=== PATIENT | female | born 1945 | race African-American/Black ===

== ENCOUNTER 2022-05-03 09:58 | Observation (INO) | payer BC, OTHER ==
[2022-05-03 10:13] VITALS: BMI 37.0
[2022-05-03] MEDS ORDERED: SODIUM CHLORIDE 0.9% 500 ML INFUS.BAG IV ONE (10:51)
[2022-05-03 11:24] LABS: BASO % 1.1 % (0-2.0); EOS % 2.2 % (0-4.5); HEMATOCRIT 40.5 % (32.4-45.2); HEMOGLOBIN 13.2 GM/dL (10.7-15.3); LYMPH % 38.8 % (8-40); MCH 28.5 pg (25.7-33.7); MCHC 32.7 g/dl (32.0-36.0); MEAN CELL VOLUME 87.2 fl (80-96); MEAN PLT VOLUME 8.2 fl (7.5-11.1); MONO % 6.8 % (3.8-10.2); NEUT % 51.1 % (42.8-82.8); PLATELET COUNT 301 10^3/uL (134-434); RBC 4.65 M/mm3 (3.60-5.2); RDW 13.4 % (11.6-15.6); WHITE BLOOD COUNT 5.9 K/mm3 (4.0-10.0)
[2022-05-03 11:55] LABS: ALBUMIN 3.2 g/dl (3.4-5.0); BLOOD UREA NITROGEN 20.1 mg/dL (7-18); CALCIUM 9.3 mg/dL (8.5-10.1)
[2022-05-03 11:58] LABS: CREATININE 1.2 mg/dL (0.55-1.3)
[2022-05-03 12:00] LABS: BILIRUBIN,TOTAL 0.3 mg/dL (0.2-1); TOT PROT 6.8 g/dl (6.4-8.2)
[2022-05-03] MEDS ORDERED: ACETAMINOPHEN 325 MG TABLET (FP) PO ONE (13:23)
[2022-05-03] MEDS ORDERED: ACETAMINOPHEN 325 MG TABLET (FP) ONE (13:24)
[2022-05-03] MEDS ORDERED: LIDOCAINE 5% TOPICAL PATCH TP ONE (17:43)
[2022-05-03] MEDS ORDERED: LIDOCAINE 5% TOPICAL PATCH ONE (17:47)
[2022-05-03 18:01] LABS: URINE APPEARANCE CLEAR; URINE BILIRUBIN NEGATIVE (NEGATIVE); URINE COLOR YELLOW; URINE GLUCOSE (UA) NEGATIVE (NEGATIVE); URINE KETONE NEGATIVE (NEGATIVE); URINE LEUK ESTERASE NEGATIVE (NEGATIVE); URINE NITRITE NEGATIVE (NEGATIVE); URINE PROTEIN NEGATIVE (NEGATIVE); URINE UROBILINOGEN 0.2 mg/dL (0.2-1.0)
[2022-05-03] MEDS ORDERED: ACETAMINOPHEN 1000 MG/100 ML BAG IVPB ONE (21:18)
[2022-05-03] MEDS ORDERED: ACETAMINOPHEN INJECTION 100 ML IVPB ONE (21:20)
[2022-05-04] MEDS ORDERED: ACETAMINOPHEN 325 MG TABLET (FP) PO PRN (02:37)
[2022-05-04] MEDS ORDERED: ACETAMINOPHEN 325 MG TABLET (FP) ONE (03:42)
[2022-05-04] MEDS ORDERED: LIDOCAINE PATCH REMOVAL MC SCH (06:00)
[2022-05-04 06:38] VITALS: TEMP 98
[2022-05-04 06:42] LABS: BASO % 0.9 % (0-2.0); EOS % 1.9 % (0-4.5); HEMATOCRIT 40.8 % (32.4-45.2); HEMOGLOBIN 13.2 GM/dL (10.7-15.3); LYMPH % 42.5 % (8-40); MCH 28.5 pg (25.7-33.7); MCHC 32.3 g/dl (32.0-36.0); MEAN CELL VOLUME 88.1 fl (80-96); MEAN PLT VOLUME 8.4 fl (7.5-11.1); MONO % 6.5 % (3.8-10.2); NEUT % 48.2 % (42.8-82.8); PLATELET COUNT 240 10^3/uL (134-434); RBC 4.63 M/mm3 (3.60-5.2); RDW 13.1 % (11.6-15.6); WHITE BLOOD COUNT 6.7 K/mm3 (4.0-10.0)
[2022-05-04 06:50] LABS: CALCIUM 9.1 mg/dL (8.5-10.1)
[2022-05-04 06:51] LABS: ALBUMIN 3.2 g/dl (3.4-5.0); BLOOD UREA NITROGEN 20.8 mg/dL (7-18); MAGNESIUM 2.2 mg/dL (1.8-2.4)
[2022-05-04 06:54] LABS: CHOLESTEROL 315 mg/dL (50-200); CREATININE 1.1 mg/dL (0.55-1.3); PHOSPHOROUS 3.6 mg/dL (2.5-4.9); TRIGLYCERIDES 102 mg/dL (0-150)
[2022-05-04 06:55] LABS: LDL CHOLESTEROL (ONLY SJRH) 227 mg/dL (5-100)
[2022-05-04 06:56] LABS: BILIRUBIN,TOTAL 0.4 mg/dL (0.2-1); TOT PROT 6.8 g/dl (6.4-8.2)
[2022-05-04 06:57] LABS: HDL CHOLESTEROL 60 mg/dL (40-60)
[2022-05-04] MEDS ORDERED: METOPROLOL TARTRATE 25 MG TABLET (FP) ONE (08:38)
[2022-05-04] MEDS ORDERED: METOPROLOL TARTRATE 25 MG TABLET (FP) PO SCH (10:00)
[2022-05-04] MEDS ORDERED: ENOXAPARIN NA (PORCINE) 40 MG/0.4 ML DISP.SYRIN SQ SCH (10:00)
[2022-05-04] MEDS ORDERED: ENOXAPARIN NA (PORCINE) 40 MG/0.4 ML DISP.SYRIN SQ ONE (11:03)
[2022-05-04] MEDS ORDERED: ATORVASTATIN CA 20 MG TABLET (FP) ONE (12:56)
[2022-05-04] MEDS ORDERED: ATORVASTATIN CA 20 MG TABLET (FP) PO SCH (13:00)
[2022-05-04 16:05] VITALS: BP 154/99; PULSE 80; RESP 16
[2022-05-04] MEDS ORDERED: HYDROCHLOROTHIAZIDE 25 MG TABLET (FP) PO SCH (22:00)
== END 2022-05-04 16:02 | disposition home or self-care (01) ==
LOC: JER 09:58 → JERBED 11:54
PROVIDERS: ADMIT Hospitalist; ATTEND Internal Medicine
PROC: 3E033NZ Introduction of Analgesics, Hypnotics, Sedatives into Peripheral Vein, Percutaneous Approach (ICD-10-PCS; principal; 2022-05-03)
PROC: 3E023GC Introduction of Other Therapeutic Substance into Muscle, Percutaneous Approach (ICD-10-PCS; 2022-05-03)
PROC: 3E0337Z Introduction of Electrolytic and Water Balance Substance into Peripheral Vein, Percutaneous Approach (ICD-10-PCS; 2022-05-03)
DX: R00.0 Tachycardia, unspecified (principal); I10 Essential (primary) hypertension; E78.5 Hyperlipidemia, unspecified; F17.210 Nicotine dependence, cigarettes, uncomplicated; R55 Syncope and collapse; Z88.0 Allergy status to penicillin; Z91.018 Allergy to other foods; Z29.8 Encounter for other specified prophylactic measures
CPT/HCPCS: 36415; 70450-TC; 71045-TC-FY; 71275-TC; 80053; 80061; 81003; 82962; 83036; 83735; 84100; 84443; 84484; 85025; 85379; 87086; 93005; 93010; 93306-TC; 93880-TC; 93970-TC; 96372; 96374; 99285-25; C9803-CS; G0378; U0003; U0005